=== PATIENT | male | born 1965 | race Caucasian/White ===

== ENCOUNTER 2017-05-07 03:27 | Emergency (ER) | payer BC, SELFPAY ==
[2017-05-07] MEDS ORDERED: Azithromycin 250 MG TAB ONE (04:18)
--- NOTE | 2017-05-07 09:42 | RAD ---
CHEST PA AND LATERAL: Date: 05/07/17 HISTORY: 51-year-old male with cough. COMPARISON: 06/27/15. FINDINGS: Heart size is normal. The lungs are clear. No pneumonia, edema, pleural effusion, or other acute pro cess. IMPRESSION: No acute intrathoracic disease. POS: [facility]
== END 2017-05-07 04:30 | disposition home or self-care (01) ==
LOC: MADERS 03:27
DX: J44.0 Chronic obstructive pulmonary disease with (acute) lower respiratory infection (principal); J20.9 Acute bronchitis, unspecified; F17.210 Nicotine dependence, cigarettes, uncomplicated
CPT/HCPCS: 71020; 87081; 87430; J1040; J7620

== ENCOUNTER 2017-07-12 02:39 | Emergency (ER) | payer SELFPAY ==
[2017-07-12] MEDS ORDERED: Aspirin 325 MG TAB ONE (03:06)
[2017-07-12] MEDS ORDERED: methylPREDNISolone Sod Succ/PF 125 MG/2 ML VIAL ONE (03:06)
[2017-07-12 03:45] LABS: #Basophils 0.1 thou/uL (0.0-0.2); #Eosinphils 0.4 thou/uL (0.0-0.7); #Lymphocytes 2.4 thou/uL (1.20-3.40); #Monocytes 0.4 thou/uL (0.11-0.59); #Neutrophils 3.6 thou/uL (1.40-6.50); %Basophils 1.9 % (0.0-1.0); %Eosinophils 5.4 % (0.0-10.0); %Lymphocytes 34.5 % (21.0-51.0); %Monocytes 5.5 % (0.0-10.0); %Neutrophils 52.7 % (42.0-75.0); Hemoglobin 14.1 g/dL (14.0-18.0); Mean Corpuscular HGB CONC 34.1 g/dL (32.0-36.0); Mean Corpuscular Hemoglobin 32.4 pg (27.0-31.0); Mean Platelet Volume 7.7 fL (7.4-10.4); Platelet Count 175 thou/uL (130-400); RBC Distribution Width 11.9 % (11.5-14.5); Red Blood Cell (RBC) Count 4.34 mill/uL (4.70-6.10); White Blood Cell (WBC) Count 6.9 thou/uL (4.8-10.8)
[2017-07-12 03:46] LABS: ALT (SGPT) 53 U/L (8-55); AST (SGOT) 33 U/L (5-34); Albumin 3.9 g/dL (3.5-5.0); Alkaline Phosphatase 99 U/L (40-150); Anion Gap 15 mmol/L (10-20); BUN (Urea Nitrogen) 15 mg/dL (8.4-25.7); Bilirubin, Total 0.5 mg/dL (0.2-1.2); Calc. Creatinine Clearance 0 mL/min (70-130); Calcium 8.8 mg/dL (7.8-10.44); Carbon Dioxide 26 mmol/L (22-29); Chloride 101 mmol/L (98-107); Estimated GFR-MDRD 64; Globulin 3.3 g/dL (2.4-3.5); Glucose 145 mg/dL (70-105); Protein, Total 7.2 g/dL (6.0-8.3); Sodium 138 mmol/L (136-145)
[2017-07-12 03:53] LABS: CKMB 1.7 ng/mL (0-6.6); Troponin I 0.017 ng/mL (< 0.028)
[2017-07-12] MEDS ORDERED: Ventolin HFA Inhaler 60 PUFF INHALER ONE (04:03)
[2017-07-12] MEDS ORDERED: Sodium Chloride 0.9% 1,000 ML BAG ONE (07:10)
--- NOTE | 2017-07-12 08:15 | RAD ---
RADIOGRAPH CHEST 1 VIEW: HISTORY: A 52-year-old female with acute dyspnea. FINDINGS: There are no air space densities, pulmonary edema, pneumothorax, or cardiomegaly. The lateral costo phrenic angles are sharp. IMPRESSION: No acute cardiopulmonary findings. [email or web address] [] POS: [facility]
== END 2017-07-12 04:20 | disposition home or self-care (01) ==
LOC: MADERS 02:39
DX: J45.909 Unspecified asthma, uncomplicated (principal); F17.210 Nicotine dependence, cigarettes, uncomplicated
CPT/HCPCS: 36415; 71010; 80053; 82553; 83880; 84484; 85025; 85379; 93005; 94640; 96361; 96374; J2930; J7050; J7620

== ENCOUNTER 2018-08-23 15:28 | Emergency (ER) | payer SELFPAY ==
[2018-08-23] MEDS ORDERED: Nitroglycerin 0.4 MG TAB (25 Tab Bottle) ONE (16:12)
[2018-08-23] MEDS ORDERED: methylPREDNISolone Sod Succ/PF 125 MG/2 ML VIAL ONE (16:12)
[2018-08-23] MEDS ORDERED: Furosemide 40 MG/4 ML VIAL ONE (16:13)
--- NOTE | 2018-08-23 16:24 | RAD ---
AP VIEW CHEST: 08/23/18 HISTORY: Shortness of breath. Leg swelling. AP view chest is obtained on 08/23/18. Comparison made to previous exam from 07/12/17. AP view chest demonstrates mild pulmonary vascular congestion. No evidence of effusions, pneumonia, o r pneumothorax seen. IMPRESSION: Unremarkable AP view chest. POS: [facility]
[2018-08-23 16:33] LABS: #Basophils 0.1 thou/uL (0.0-0.2); #Eosinphils 0.6 thou/uL (0.0-0.7); #Lymphocytes 2.5 thou/uL (1.20-3.40); #Monocytes 0.4 thou/uL (0.11-0.59); #Neutrophils 4.4 thou/uL (1.40-6.50); %Basophils 1.3 % (0.0-1.0); %Eosinophils 7.4 % (0.0-10.0); %Lymphocytes 30.9 % (21.0-51.0); %Monocytes 5.2 % (0.0-10.0); %Neutrophils 55.2 % (42.0-75.0); Hemoglobin 14.3 g/dL (14.0-18.0); Mean Corpuscular HGB CONC 34.1 g/dL (32.0-36.0); Mean Corpuscular Hemoglobin 32.4 pg (27.0-31.0); Mean Corpuscular Volume 94.9 fL (78.0-98.0); Mean Platelet Volume 7.4 fL (7.4-10.4); Platelet Count 181 thou/uL (130-400); RBC Distribution Width 11.1 % (11.5-14.5); Red Blood Cell (RBC) Count 4.41 mill/uL (4.70-6.10)
[2018-08-23 16:52] LABS: ALT (SGPT) 102 U/L (8-55); AST (SGOT) 73 U/L (5-34); Albumin 3.9 g/dL (3.5-5.0); Alkaline Phosphatase 145 U/L (40-150); Anion Gap 13 mmol/L (10-20); BUN (Urea Nitrogen) 12 mg/dL (8.4-25.7); Bilirubin, Total 0.4 mg/dL (0.2-1.2); CK (CPK) 88 U/L (30-200); Calc. Creatinine Clearance 0 mL/min (70-130); Calcium 9.3 mg/dL (7.8-10.44); Carbon Dioxide 29 mmol/L (22-29); Chloride 99 mmol/L (98-107); Estimated GFR-MDRD 65; Globulin 3.5 g/dL (2.4-3.5); Glucose 212 mg/dL (70-105); Lipase 35 U/L (8-78); Protein, Total 7.4 g/dL (6.0-8.3); Sodium 137 mmol/L (136-145)
[2018-08-23 16:53] LABS: CKMB 1.4 ng/mL (0-6.6); Troponin I Less than 0.010 ng/mL (< 0.028)
== END 2018-08-23 19:20 | disposition short-term general hospital (02) ==
LOC: MADERS 15:28
DX: I50.9 Heart failure, unspecified (principal); F17.210 Nicotine dependence, cigarettes, uncomplicated; Z79.899 Other long term (current) drug therapy
CPT/HCPCS: 71045; 80053; 82550; 82553; 83690; 83880; 84484; 85025; 93005; 94640; 94760; 96374; 96375; J1940; J2930; J7620

== ENCOUNTER 2018-10-10 18:05 | Emergency (ER) | payer SELFPAY ==
[2018-10-10] MEDS ORDERED: Ketorolac Tromethamine 60 MG/2 ML VIAL ONE (18:33)
[2018-10-10] MEDS ORDERED: CEFAZOLIN 1 GM VIAL ONE (18:44)
== END 2018-10-10 18:55 | disposition home or self-care (01) ==
LOC: MADERS 18:05
DX: L02.11 Cutaneous abscess of neck (principal); E11.9 Type 2 diabetes mellitus without complications; F17.210 Nicotine dependence, cigarettes, uncomplicated; Z79.899 Other long term (current) drug therapy
CPT/HCPCS: 96372; J0690; J1885

== ENCOUNTER 2021-09-25 22:35 | Emergency (ER) | payer SELFPAY ==
[2021-09-25] MEDS ORDERED: Ketorolac Tromethamine 60 MG/2 ML VIAL ONE (23:34)
[2021-09-25] MEDS ORDERED: Cyclobenzaprine 10 MG TAB ONE (23:34)
== END 2021-09-26 00:44 | disposition home or self-care (01) ==
LOC: MADERS 22:35
DX: M62.830 Muscle spasm of back (principal); E11.9 Type 2 diabetes mellitus without complications; F17.210 Nicotine dependence, cigarettes, uncomplicated
CPT/HCPCS: 96372; 99283; J1885